=== PATIENT | female | born 1970 | race Caucasian/White ===

== ENCOUNTER 2016-07-16 12:26 | Emergency (ER) | payer MEDICAID ==
[2016-07-16 12:34] VITALS: RESP 18; TEMP 98.6
--- NOTE | 2016-07-16 13:07 | EDPHY ---
H & P Time Seen by Provider: 07/16/16 13:06 HPI/ROS: Chief complaint. Chest pain HPI. 46-year-old female presents emergency department with central chest discomfort. She describes it as sharp and aching and maybe just to the right of her sternum. No radiation. It is worse with breathing. Subjective fever. Slight cough. 3 weeks of fatigue. Nausea this morning which is common however the nausea has persisted which is unusual. Slight headache. No leg symptoms. ROS Constitutional. Subjective fever Eyes. no problems with vision ENT. no sore throat, no nasal drainage Cardiovascular. Central right chest discomfort worse with breathing Respiratory. No shortness of breath but slight cough Abdominal. Nausea mild diffuse pain . no problems urinating MS. no calf pain/swelling, no neck/back pain, no joint pain Skin. no rash Lymph. no swollen glands Neuro. Headache Past Medical/Surgical History: Past medical history significant for chronic pain, herpes, hypertension, diabetes Social History: Single, nonsmoker, no alcohol Smoking Status: Former smoker Physical Exam: General Appearance: Alert well-developed female mild distress vital signs are stable Eyes: Pupils equal and round no pallor or injection. ENT, Mouth: Mucous membranes are moist. Respiratory: There are no retractions, lungs are clear to auscultation. Cardiovascular: Regular rate and rhythm. Gastrointestinal: Abdomen is soft and nontender, no masses, bowel sounds normal. Neurological: Awake and alert, sensory and motor exams grossly normal. Skin: Warm and dry, no rashes. Musculoskeletal: Neck is supple nontender. Extremities symmetrical, full range of motion. Psychiatric: Patient is oriented X 3, there is no agitation. Constitutional: Initial Vital Signs Temperature (C) 37 C 07/16/16 12:29 Heart Rate 76 07/16/16 12:29 Respiratory Rate 18 07/16/16 12:29 Blood Pressure 143/100 H 07/16/16 12:29 O2 Sat (%) 96 07/16/16 12:29 O2 Delivery Mode Room Air Allergies/Adverse Reactions: promethazine [From Phenergan] Allergy (Intermediate, Verified 07/16/16 12:28) extrapyramidal sx Home Medications: Medication Instructions Recorded Acyclovir [Zovirax 400 mg (*)] 400 mg PO BID 07/16/16 Albuterol Sulfate [Proair Hfa] 2 puffs IH Q4-6PRN PRN #1 07/16/16 [email or web address] Amoxicillin 500 mg PO TID 7 Days 07/16/16 FLUoxetine [PROzac] 20 mg PO 07/16/16 Hydrochlorothiazide [HCTZ (*)] 25 mg PO DAILY 07/16/16 Losartan Potassium [Cozaar 50 mg 50 mg PO 07/16/16 (*)] Pregabalin [Lyrica 50mg (*)] 50 mg PO BID 07/16/16 metFORMIN HCL [Glucophage 500 mg 500 mg PO 07/16/16 (*)] traMADol [Ultram 50 mg (*)] 50 mg PO Q4 07/16/16 Medical Decision Making - Diagnostics EKG Interpretation: EKG interpreted by me shows normal sinus rhythm interval axis. QRS is otherwise normal. No significant ST elevation or depression. There is diffuse T -wave present inferiorly, anteriorly, laterally. Rate is 69 Imaging Results: Imaging Impressions Chest X-Ray 07/16/16 13:20 Impression: Mild peribronchial thickening suggesting airways disease/bronchitis. Chest x-ray interpreted by me is consistent with bronchitis Procedures: IV normal saline, monitor ED Course/Re-evaluation: Re-evaluation at 2:40 p.m. patient is stable. The patient and I discussed imaging EKG and lab results. We discussed treatment plan including criteria for return and importance of follow-up and further evaluation. She expresses understanding and agreement Differential Diagnosis: I considered pneumonia, pneumothorax, pulmonary embolus, acute coronary syndrome. This appears to be bronchitis and upper respiratory infection - Data Points Laboratory Results: Laboratory Results 07/16/16 13:34 07/16/16 13:34 07/16/16 07/16/16 07/16/16 13:34 13:34 13:34 WBC RBC Hgb Hct MCV MCH MCHC RDW Plt Count MPV Neut % (Auto) Lymph % (Auto) Gray % (Auto) Eos % (Auto) Baso % (Auto) Nucleat RBC Rel Count Absolute Neuts (auto) Absolute Lymphs (auto) Absolute Monos (auto) Absolute Eos (auto) Absolute Basos (auto) Absolute Nucleated RBC Immature Gran % Immature Gran # D-Dimer < 0.27 ug/mLFEU ug/mLFEU (0.00-0.50) Sodium 137 mEq/L mEq/L (134-144) Potassium 4.1 mEq/L mEq/L (3.5-5.2) Chloride 102 mEq/L mEq/L (97-110) Carbon Dioxide 26 mEq/l mEq/l (22-31) Anion Gap 9 mEq/L mEq/L (8-16) BUN 10 mg/dL mg/dL (7-23) Creatinine 0.7 mg/dL mg/dL (0.6-1.0) Estimated GFR > 60 Glucose 89 mg/dL mg/dL (70-100) Calcium 9.2 mg/dL mg/dL (8.5-10.4) Troponin I < 0.012 ng/mL ng/mL (0-0.034) Beta HCG, Qual NEGATIVE 07/16/16 13:34 WBC 8.22 10^3/uL 10^3/uL (3.80-9.50) RBC 4.89 10^6/uL 10^6/uL (4.18-5.33) Hgb 14.3 g/dL g/dL (12.6-16.3) Hct 42.2 % % (38.0-47.0) MCV 86.3 fL fL (81.5-99.8) MCH 29.2 pg pg (27.9-34.1) MCHC 33.9 g/dL g/dL (32.4-36.7) RDW 12.7 % % (11.5-15.2) Plt Count 379 10^3/uL 10^3/uL (150-400) MPV 9.6 fL fL (8.7-11.7) Neut % (Auto) 53.7 % % (39.3-74.2) Lymph % (Auto) 37.2 % % (15.0-45.0) Gray % (Auto) 6.0 % % (4.5-13.0) Eos % (Auto) 2.3 % % (0.6-7.6) Baso % (Auto) 0.6 % % (0.3-1.7) Nucleat RBC Rel Count 0.0 % % (0.0-0.2) Absolute Neuts (auto) 4.41 10^3/uL 10^3/uL (1.70-6.50) Absolute Lymphs (auto) 3.06 10^3/uL H 10^3/uL (1.00-3.00) Absolute Monos (auto) 0.49 10^3/uL 10^3/uL (0.30-0.80) Absolute Eos (auto) 0.19 10^3/uL 10^3/uL (0.03-0.40) Absolute Basos (auto) 0.05 10^3/uL 10^3/uL (0.02-0.10) Absolute Nucleated RBC 0.00 10^3/uL 10^3/uL (0-0.01) Immature Gran % 0.2 % % (0.0-1.1) Immature Gran # 0.02 10^3/uL 10^3/uL (0.00-0.10) D-Dimer Sodium Potassium Chloride Carbon Dioxide Anion Gap BUN Creatinine Estimated GFR Glucose Calcium Troponin I Beta HCG, Qual Medications Given: Discontinued Medications Sodium Chloride (Ns) 1,000 mls @ 0 mls/hr IV ONCE ONE PRN Reason: Wide Open Stop: 07/16/16 13:21 Last Admin: 07/16/16 13:30 Dose: 1,000 mls Departure - Departure Disposition: Home, Routine, Self-Care Clinical Impression: Acute bronchitis Qualifiers: Bronchitis organism: unspecified organism Qualified Code(s): J20.9 - Acute bronchitis, unspecified Condition: Good Instructions: Acute Bronchitis (ED) Additional Instructions: Amoxicillin as antibiotic. Inhaler using 2 puffs every 4-6 hours to help with breathing. Drink plenty of fluids and stay hydrated. Return for worsening symptoms. Recheck 3-4 days if not improved Referrals: Ruby Santillan MD [Primary Care Provider] - 3-4 days, if not improved Prescriptions: Albuterol Sulfate [Proair Hfa] 2 puffs IH Q4-6PRN PRN #1 [email or web address] PRN Reason: Short Of Breath/Dyspnea Amoxicillin 500 mg PO TID 7 Days
[2016-07-16] MEDS ORDERED: NS 1,000 ML IV ONE (13:20)
--- NOTE | 2016-07-16 13:29 | CPEKG ---
Heart Rate: 69 RR Interval: 870 P-R Interval: 150 QRSD Interval: 78 QT Interval: 392 QTC Interval: 420 P [place]: 0 QRS [place]: 49 T Wave [place]: 5 EKG Severity - BORDERLINE ECG - EKG Impression: SINUS RHYTHM EKG Impression: BORDERLINE T ABNORMALITIES, DIFFUSE LEADS Electronically Signed By: Osmar Reeder 16-Jul-2016 13:36:18
[2016-07-16 13:42] LABS: % IMMATURE GRANULYOCYTES 0.2 % (0.0-1.1); ABSOLUTE IMMATURE GRANULOCYTES 0.02 10^3/uL (0.00-0.10); ADD DIFF? NO; ADD MORPH? NO; ADD SCAN? NO; ATYPICAL LYMPHOCYTE FLAG 0 (0-99); FRAGMENT RBC FLAG 0 (0-99); HEMATOCRIT 42.2 % (38.0-47.0); HEMOGLOBIN 14.3 g/dL (12.6-16.3); LEFT SHIFT FLG 0 (0-99); LIPEMIA HEMOLYSIS FLAG 90 (0-99); MEAN CELL HEMOGLOBIN 29.2 pg (27.9-34.1); MEAN CELL HEMOGLOBIN CONCENTR. 33.9 g/dL (32.4-36.7); MEAN CELL VOLUME 86.3 fL (81.5-99.8); MEAN PLATELET VOLUME 9.6 fL (8.7-11.7); PLATELET CLUMPS FLAG 0 (0-99); PLATELET COUNT 379 10^3/uL (150-400); RED BLOOD CELL COUNT 4.89 10^6/uL (4.18-5.33); RED CELL DISTRIBUTION WIDTH 12.7 % (11.5-15.2)
[2016-07-16 13:59] LABS: ANION GAP 9 mEq/L (8-16); CALCIUM 9.2 mg/dL (8.5-10.4); CARBON DIOXIDE 26 mEq/l (22-31); CHLORIDE 102 mEq/L (97-110); CREATININE 0.7 mg/dL (0.6-1.0); GLOMERULAR FILTRATION RATE > 60; GLUCOSE 89 mg/dL (70-100); POTASSIUM 4.1 mEq/L (3.5-5.2); SODIUM 137 mEq/L (134-144)
[2016-07-16 14:11] LABS: TROPONIN I < 0.012 ng/mL (0-0.034)
[2016-07-16 15:07] VITALS: BP 132/82; PULSE 74; O2SAT 92
== END 2016-07-16 15:07 | disposition home or self-care (01) ==
DX: J20.9 Acute bronchitis, unspecified (principal); I10 Essential (primary) hypertension; E11.9 Type 2 diabetes mellitus without complications; Z87.891 Personal history of nicotine dependence

== ENCOUNTER 2017-05-21 14:00 | Emergency (ER) | payer OTHER, MEDICAID ==
[2017-05-21 14:07] VITALS: RESP 18; TEMP 98.1
[2017-05-21] MEDS ORDERED: ONDANSETRON 4 MG/2 ML VIAL IVP ONE (14:46)
[2017-05-21] MEDS ORDERED: NS 1,000 ML IV ONE (14:46)
--- NOTE | 2017-05-21 14:46 | EDPHY ---
H & P Time Seen by Provider: 05/21/17 14:13 HPI/ROS: CHIEF COMPLAINT: Right upper quadrant abdominal pain HISTORY OF PRESENT ILLNESS: Patient is a 46-year-old female with a history of fibromyalgia and previous cholecystectomy who presents to the emergency department right upper quadrant pain since this morning. Pain is waxing and waning. It occurs intermittently. Has progressively worsened. She describes it as sharp pain. It is not worse with deep breath or movement. She denies any radiation of her pain. Mild nausea with no vomiting. No fevers or chills. No dysuria or frequency. REVIEW OF SYSTEMS: My complete review of systems is negative except as mentioned in the HPI. Past Medical/Surgical History: Includes hypertension, fibromyalgia, celiac disease, ovarian cyst, chronic pain , IUD in place Past surgical history: Cholecystectomy Social history: The patient does not smoke. The patient is not sexually active. Smoking Status: Former smoker Physical Exam: Vitals noted. Afebrile GENERAL: Well-appearing, in no acute distress, alert. HEENT: Eyes normal to inspection, normal pharynx, no signs of dehydration. NECK: No thyromegaly, no lymphadenopathy, supple. RESPIRATORY: Clear to auscultation bilaterally, no rales, rhonchi or wheezing. CVS: Regular rate and rhythm, no rubs, murmurs, or gallops. ABDOMEN: Soft, right upper quadrant tenderness to palpation with no rebound or guarding, nondistended, no organomegaly. BACK: Normal to inspection, no CVA tenderness. SKIN: Normal color, no rash, warm, dry. No pallor. EXTREMITIES: No pedal edema, no calf tenderness, no Homans sign or cords, no joint swelling. NEURO/PSYCH: Alert and oriented x3, normal mood and affect, normal motor sensory exam. Constitutional: Initial Vital Signs Temperature (C) 36.7 C 05/21/17 14:05 Heart Rate 87 05/21/17 14:05 Respiratory Rate 18 05/21/17 14:05 Blood Pressure 140/100 H 05/21/17 14:05 O2 Sat (%) 95 05/21/17 14:05 O2 Delivery Mode Room Air Allergies/Adverse Reactions: promethazine [From Phenergan] Allergy (Intermediate, Verified 07/16/16 12:28) extrapyramidal sx Home Medications: Medication Instructions Recorded Acyclovir [Zovirax 400 mg (*)] 400 mg PO BID 07/16/16 Albuterol Sulfate [Proair Hfa] 2 puffs IH Q4-6PRN PRN #1 07/16/16 [email or web address] Amoxicillin 500 mg PO TID 7 Days cap 07/16/16 FLUoxetine [PROzac] 20 mg PO 07/16/16 Hydrochlorothiazide [HCTZ (*)] 25 mg PO DAILY 07/16/16 Losartan Potassium [Cozaar 50 mg 50 mg PO 07/16/16 (*)] Pregabalin [Lyrica 50mg (*)] 50 mg PO BID 07/16/16 metFORMIN HCL [Glucophage 500 mg 500 mg PO 07/16/16 (*)] traMADol [Ultram 50 mg (*)] 50 mg PO Q4 07/16/16 CeleBREX 05/21/17 oxyCODONE/APAP 5/325 [Percocet 1 - 2 tab PO Q4PRN PRN #11 tab 05/21/17 5/325 (*)] Medical Decision Making - Diagnostics Imaging Results: Imaging Impressions Abdomen CT 05/21/17 14:47 Impression: 1. Mildly prominent ovaries bilaterally. If indicated, consider correlation with pelvic ultrasound. 2. Previous cholecystectomy. 3. No CT evidence of appendicitis, abscess or bowel obstruction. Findings discussed with Maggie Ma M.D. at 16:23 hour, 05/21/2017. ED Course/Re-evaluation: In the emergency department I discussed possible etiologies with the patient. I answered all her questions. IV was placed. Laboratory studies were obtained. The patient has IUD in place and she is not sexually active. CT scan was ordered. I refer this imaging over an ultrasound because she has previously had a cholecystectomy. The patient was given morphine 4 mg IV for pain and Zofran 4 mg for nausea. The patient is mildly elevated white count of 11. Chemistry panel is unremarkable. is negative. CT of the abdomen pelvis: Please refer the dictated report by Dr. Dubose. No acute disease noted in the right upper quadrant. I rechecked the patient. She is sitting comfortably in the bed reading. Repeat exam her abdomen is soft nontender nondistended. I discussed all the findings. I answered her questions. She will be discharged for follow-up with her primary care physician. She was given a prescription of Percocet. She was instructed not to use this with tramadol. Differential Diagnosis: My differential includes but is not limited to cholangitis, hepatitis, cirrhosis , small-bowel obstruction, perforation, volvulus - Data Points Laboratory Results: Laboratory Results 05/21/17 14:55 18 14:55 18 05/21/1718 14:55 14:55 14:55 WBC 11.67 10^3/uL H 10^3/uL (3.80-9.50) RBC 4.53 10^6/uL 10^6/uL (4.18-5.33) Hgb 13.4 g/dL g/dL (12.6-16.3) Hct 39.4 % % (38.0-47.0) MCV 87.0 fL fL (81.5-99.8) MCH 29.6 pg pg (27.9-34.1) MCHC 34.0 g/dL g/dL (32.4-36.7) RDW 13.2 % % (11.5-15.2) Plt Count 376 10^3/uL 10^3/uL (150-400) MPV 10.0 fL fL (8.7-11.7) Neut % (Auto) 65.3 % % (39.3-74.2) Lymph % (Auto) 26.6 % % (15.0-45.0) [place] % (Auto) 5.9 % % (4.5-13.0) Eos % (Auto) 1.5 % % (0.6-7.6) Baso % (Auto) 0.4 % % (0.3-1.7) Nucleat RBC Rel Count 0.0 % % (0.0-0.2) Absolute Neuts (auto) 7.63 10^3/uL H 10^3/uL (1.70-6.50) Absolute Lymphs (auto) 3.10 10^3/uL H 10^3/uL (1.00-3.00) Absolute Monos (auto) 0.69 10^3/uL 10^3/uL (0.30-0.80) Absolute Eos (auto) 0.17 10^3/uL 10^3/uL (0.03-0.40) Absolute Basos (auto) 0.05 10^3/uL 10^3/uL (0.02-0.10) Absolute Nucleated RBC 0.00 10^3/uL 10^3/uL (0-0.01) Immature Gran % 0.3 % % (0.0-1.1) Immature Gran # 0.03 10^3/uL 10^3/uL (0.00-0.10) Sodium 139 mEq/L mEq/L (135-145) Potassium 4.4 mEq/L mEq/L (3.5-5.2) Chloride 104 mEq/L mEq/L (97-110) Carbon Dioxide 24 mEq/l mEq/l (22-31) Anion Gap 11 mEq/L mEq/L (8-16) BUN 17 mg/dL mg/dL (7-23) Creatinine 0.7 mg/dL mg/dL (0.6-1.0) Estimated GFR > 60 Glucose 123 mg/dL H mg/dL (70-100) Calcium 9.4 mg/dL mg/dL (8.5-10.4) Total Bilirubin 0.6 mg/dL mg/dL (0.1-1.4) Conjugated Bilirubin 0.4 mg/dL mg/dL (0.0-0.5) Unconjugated Bilirubin 0.2 mg/dL mg/dL (0.0-1.1) AST 27 IU/L IU/L (14-46) ALT 31 IU/L IU/L (9-52) Alkaline Phosphatase 78 IU/L IU/L (38-126) Total Protein 7.0 g/dL g/dL (6.3-8.2) Albumin 4.0 g/dL g/dL (3.5-5.0) Lipase 89 IU/L IU/L (23-300) Beta HCG, Qual NEGATIVE Medications Given: Discontinued Medications Sodium Chloride (Ns) 1,000 mls @ 0 mls/hr IV EDNOW ONE; Wide Open PRN Reason: Protocol Stop: 05/21/17 14:47 Last Admin: 05/21/17 15:02 Dose: 1,000 mls Morphine Sulfate (Morphine) 4 mg IVP EDNOW ONE Stop: 05/21/17 14:47 Last Admin: 05/21/17 15:03 Dose: 2 mg Ondansetron HCl (Zofran) 4 mg IVP EDNOW ONE Stop: 05/21/17 14:47 Last Admin: 05/21/17 15:03 Dose: 4 mg Departure - Departure Disposition: Home, Routine, Self-Care Clinical Impression: Abdominal pain Qualifiers: Abdominal location: right upper quadrant Qualified Code(s): R10.11 - Right upper quadrant pain Condition: Good Instructions: Acute Abdominal Pain (ED) Additional Instructions: Return with increasing pain, fever, vomiting, or any other concerns. You need close follow-up with your primary care physician. Referrals: Ruby Santillan MD [Primary Care Provider] - 1-2 days without fail Prescriptions: oxyCODONE/APAP 5/325 [Percocet 5/325 (*)] 1 - 2 tab PO Q4PRN PRN #11 tab PRN Reason: For Moderate To Severe Pain
[2017-05-21 15:11] LABS: PLATELET COUNT 376 10^3/uL (150-400)
[2017-05-21] MEDS ORDERED: IOPAMIDOL (ISOVUE-300) 100 ML BTL ONE (15:48)
[2017-05-21 17:19] VITALS: BP 134/82; PULSE 81; O2SAT 94
== END 2017-05-21 17:20 | disposition home or self-care (01) ==
DX: R10.11 Right upper quadrant pain (principal); E86.9 Volume depletion, unspecified; I10 Essential (primary) hypertension; Z87.891 Personal history of nicotine dependence; Z90.49 Acquired absence of other specified parts of digestive tract
CPT/HCPCS: 96374; J2270; J2405; Q9967